=== PATIENT | female | born 1990 | race Hispanic/Latino ===

== ENCOUNTER 2022-02-01 20:04 | Emergency (ER) | payer MEDICAID, SELFPAY ==
[2022-02-01] MEDS ORDERED: Dexamethasone 4 mg/ml Vial ONE (21:24)
[2022-02-01] MEDS ORDERED: Bicillin LA 1.2 MILLION UNITS/2 ML SYRINGE IM SCH (21:45)
== END 2022-02-01 22:01 | disposition home or self-care (01) ==
LOC: ERS 20:04
DX: J02.9 Acute pharyngitis, unspecified (principal)
CPT/HCPCS: 96372; 99283; J0561; J1100

== ENCOUNTER 2023-07-31 20:23 | Emergency (ER) | payer MEDICAID, SELFPAY ==
[2023-07-31 21:11] LABS: #Basophils 0.1 thou/uL (0.0-0.2); #Eosinphils 0.1 thou/uL (0.0-0.7); #Monocytes 0.4 thou/uL (0.11-0.59); #Neutrophils 5.1 thou/uL (1.40-6.50); %Eosinophils 1.2 % (0.0-10.0); %Lymphocytes 30.7 % (21.0-51.0); %Monocytes 5.3 % (0.0-10.0); %Neutrophils 61.7 % (42.0-75.0); Hematocrit 40.3 % (36.0-47.0); Hemoglobin 12.9 g/dL (12.0-16.0); Mean Corpuscular Hemoglobin 27.4 pg (27.0-31.0); Mean Corpuscular Volume 85.6 fl (78.0-98.0); Mean Platelet Volume 10.4 fL (7.4-10.4); Platelet Count 259 10x3/uL (130-400); RBC Distribution Width 13.8 % (11.5-14.5); Red Blood Cell (RBC) Count 4.71 mill/uL (4.20-5.40); White Blood Cell (WBC) Count 8.2 10x3/uL (4.8-10.8)
[2023-07-31 21:20] LABS: BHCG - Serum Negative (NEGATIVE); Pregs Control Background? CLEAR/WHITE (CLR/WHITE); Pregs Control Bar Appear? YES (CONTROL BAR)
[2023-07-31 21:36] LABS: ALT (SGPT) 15 U/L (8-55); AST (SGOT) 17 U/L (5-34); Albumin 3.9 g/dL (3.5-5.0); Alkaline Phosphatase 67 U/L (40-110); Anion Gap 10 mmol/L (10-20); BUN (Urea Nitrogen) 9 mg/dL (7.0-18.7); Bilirubin, Total 0.4 mg/dL (0.2-1.2); Calc. Creatinine Clearance 0 mL/min (70-130); Calcium 8.3 mg/dL (7.8-10.44); Carbon Dioxide 20 mmol/L (22-29); Chloride 110 mmol/L (98-107); Estimated GFR 120; Globulin 3.2 g/dL (2.4-3.5); Glucose 113 mg/dL (70-105); Potassium 3.7 mmol/L (3.5-5.1); Protein, Total 7.1 g/dL (6.0-8.3); Sodium 136 mmol/L (136-145)
[2023-07-31] MEDS ORDERED: diphenhydrAMINE 50 MG/ML VIAL ONE (21:58)
[2023-07-31] MEDS ORDERED: Metoclopramide HCl 10 MG/2 ML VIAL ONE (21:59)
[2023-07-31 23:27] LABS: SARS-CoV-2 NAA Rapid Test Not Detected (NotDetected)
== END 2023-07-31 23:34 | disposition home or self-care (01) ==
LOC: ERS 20:23
DX: R51.9 Headache, unspecified (principal); R29.710 NIHSS score 10
CPT/HCPCS: 36415; 80053; 84703; 85025; 96361; 96365; 96375; J1200; J2765